=== PATIENT | female | born 1975 | race Caucasian/White ===

== ENCOUNTER 2019-01-23 06:16 | Day surgery (SDC) | payer OTHER ==
[2019-01-22 14:42] VITALS: BMI 22.6
--- NOTE | 2019-01-23 07:16 | HP ---
History & Physical Update - History History: No Change - Physical Physical: No Change - Assessment Assessment: No Change - Plan Plan: No Change (H&P reviewed, and unchanged from 01/22/19 Consent signed and witnessed)
--- NOTE | 2019-01-23 07:17 | OP ---
Operative Note - Note: Operative Date: 01/23/19 Pre-Operative Diagnosis: 43yo P2 with abnormal uterine bleeding, uterine polyps; . ROSCOE 2 on Colposcopic biopsy Operation: Hysteroscopy polypectomy. LEEP Findings: 1. Multiple Endometrial polyps - resected 2. Wide LEEP performed with 1x1 cm loop Surgeon: Brenda Richards Anesthesiologist/OLD COIN DEALER: Gokul Wright Anesthesia: MAC Estimated Blood Loss (mls): 100 Instrument used (Debridements only): Symphion Hysteroscope used Drains & Tubes with Location: FD 400cc Drains, Volume Out (mls): 20 Fluid Volume Replaced (mls): 300 Operative Report Dictated: Yes
[2019-01-23] MEDS ORDERED: oxyCODONE HCL 5 MG TABLET PO PRN (07:18)
[2019-01-23] MEDS ORDERED: IBUPROFEN 600 MG TABLET (FP) PO PRN (07:18)
[2019-01-23] MEDS ORDERED: ONDANSETRON 4 MG/2 ML VIAL IVPUSH PRN (07:18)
[2019-01-23] MEDS ORDERED: IBUPROFEN 800 MG/8 ML IJ IVPB PRN (07:18)
[2019-01-23] MEDS ORDERED: ELECTROLYTE-148 SOLN 1,000 ML IV SCH (07:30)
[2019-01-23] MEDS ORDERED: MIDAZOLAM HCL 2 MG/2 ML SINGLE DOSE VIAL ONE (07:31)
[2019-01-23] MEDS ORDERED: PROPOFOL 20 ML ONE (07:31)
[2019-01-23] MEDS ORDERED: SUCCINYLCHOLINE CHLORIDE 200 MG/10 ML SYRINGE ONE (07:32)
[2019-01-23] MEDS ORDERED: LIDOCAINE HCL/PF 2% SDV 5ML VIAL ONE (07:32)
[2019-01-23] MEDS ORDERED: DEXAMETHASONE SOD PHOSPHATE 4 MG/1 ML VIAL ONE (07:54)
[2019-01-23] MEDS ORDERED: KETOROLAC TROMETHAMINE 30 MG/1 ML VIAL ONE (07:54)
[2019-01-23 10:59] VITALS: BP 118/58; PULSE 60; TEMP 98.1
--- NOTE | 2019-01-23 12:10 | OP ---
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 OPERATION: Hysteroscopy, polypectomy, loop electrosurgical excision procedure. FINDINGS: 1. Multiple endometrial polyps resected. 2. Wide LEEP performed with 1 x 1-cm loop. ANESTHESIOLOGIST: Gokul Wright MD SURGEON: Lizeth Grimes MD ANESTHESIA: MAC. DESCRIPTION OF THE OPERATIVE PROCEDURE: After ensuring an informed consent, patient was brought to the operating room where she was placed in dorsal lithotomy position. Perineum and vagina were prepped and draped in sterile fashion. Cervix was visualized by placing Holliday retractors into the vagina. Cervix anterior lip was grasped with single-tooth tenaculum. Cervix was gradually dilated with Nascimento dilators to accommodate 6.3-mm Symphion hysteroscope, which was introduced into the uterine cavity without any difficulty. Above findings were visualized. The resectoscope portion of the Symphion was introduced through the operative channel, and multiple polyps as well as endometrium were resected, and subsequently multiple polyps and endometrial curettings were collected for pathology. That portion of procedure was completed and subsequently the coated speculum was introduced into the vagina. The cervix was re-grasped with single-tooth tenaculum and coated with Lugol solution. The transformation zone was visualized, and 1 x 1 loop electrocautery was utilized to resect the posterior lip of the cervix, anterior lip of the cervix, top hat, and subsequently the LEEP crater was cauterized with ball cautery. Excellent hemostasis was achieved. All instruments were removed from the cervix and vagina. The endocervical curettings were also performed and sent to Pathology. The instrument, sponge count was correct x2. Estimated blood loss 100 mL. Fluid deficit 400 mL. Patient received 300 mL of IV fluids and put out 20 mL of urine and was brought to the recovery room in stable condition, extubated. LIZETH GRIMES M.D. [id number]
--- NOTE | 2019-01-25 17:09 | PATH ---
Surgical Pathology Report Patient Name: SALAZAR CASILLAS [facility]. Rec. #: [id number] /Age/Gender: 1975 (Age: 43) / F Account: [id number] Location: [facility] SURGICAL Taken: 01/23/2019 Received: 01/23/2019 Reported: 01/25/2019 Physicians: Brenda Richards M.D. Specimen(s) Received A: POSTERIOR LIP AND INNER POSTERIOR LIP B: ENDOMTRIAL POLYP AND CURETTINGS C: ANTERIOR LIP D: TOP HAT RESECTION E: ENDOCERVICAL CURETTINGS Clinical History Postcoital and contact bleeding Final Diagnosis A. POSTERIOR LIP AND INNER POSTERIOR LIP, LEEP BIOPSY: CERVICAL TISSUE WITH ROSCOE 1 (CERVICAL INTRAEPITHELIAL NEOPLASIA GRADE 1). EPITHELIAL EROSION, ACUTE AND CHRONIC INFLAMMATION, RECENT AND OLD HEMORRHAGE, AND SQUAMOUS METAPLASIA ARE ALSO PRESENT. B. ENDOMETRIAL POLYP AND CURETTINGS: ENDOMETRIAL POLYP. SEPARATE SMOOTH MUSCLE BUNDLES, SUGGESTIVE OF SUBMUCOSAL LEIOMYOMA IN THE PROPER CLINICAL SETTING. SEPARATE SECRETORY TYPE ENDOMETRIUM. C. ANTERIOR LIP, LEEP BIOPSY: ROSCOE 2 (CERVICAL INTRAEPITHELIAL NEOPLASIA GRADE 2). SEE COMMENT. ROSCOE 1 IS ALSO PRESENT. COMMENT: ROSCOE 2 PRESENT IN DETACHED SQUAMOUS EPITHELIUM. THE SURGICAL MARGIN CANNOT BE PRECISELY ASSESSED. D. TOP HAT RESECTION: ROSCOE 2 (CERVICAL INTRAEPITHELIAL NEOPLASIA GRADE 2). SEE COMMENT. COMMENT: ROSCOE 2 PRESENT IN ENDOCERVICAL TISSUE AND MINUTE DETACHED SQUAMOUS EPITHELIUM. THE SURGICAL MARGIN CANNOT BE PRECISELY ASSESSED. E. ENDOCERVICAL CURETTINGS: ENDOCERVICAL TISSUE WITH NO SIGNIFICANT PATHOLOGIC CHANGE. SEPARATE FRAGMENTS OF SECRETORY TYPE ENDOMETRIUM AND ENDOMETRIAL POLYP. Electronically Signed Wilfrid Louie M.D. Gross Description A. Received in formalin labeled "posterior lip and inner posterior lip," are 2 fontenot, irregular, unoriented portions of tissue measuring 1.5 x 0.6 x 0.2 cm and 2.2 x 0.8 x 0.3 cm. The specimens are partially surfaced by a fontenot-pink mucosa. The specimens are inked green, serially sectioned and entirely submitted in 2 cassettes as follows: 1-smaller portion of tissue; 2-larger portion of tissue. B. Received in formalin labeled "endometrial polyp and curettings," is a 4.0 x 2.2 x 0.3 cm aggregate of fontenot pink soft tissue fragments. The formalin is filtered and the specimen is entirely submitted in 2 cassettes. C. Received in formalin labeled "anterior lip," is a 1.8 x 0.5 x 0.3 cm fontenot, irregular, unoriented portion of tissue. The specimen is inked green, serially sectioned and entirely submitted in one cassette. D. Received in formalin labeled "top hat resection," are 4 fontenot, irregular, unoriented portions of tissue ranging from 0.8 x 0.4 x 0.2 cm to 1.3 x 0.5 x 0.2 cm. The specimens are inked green, serially sectioned and entirely submitted in 4 cassettes. E. Received in formalin labeled "endocervical curettings," is a 1.3 x 0.9 x 0.3 cm aggregate of fontenot-brown soft tissue fragments. The formalin is filtered and the specimen is entirely submitted in one cassette. 01/23/201901/23/2019
== END 2019-01-23 11:51 | disposition home or self-care (01) ==
LOC: JASU-SURG 06:16
PROVIDERS: ATTEND Obstetrics & Gynecology
PROC: 0UJD8ZZ Inspection of Uterus and Cervix, Via Natural or Artificial Opening Endoscopic (ICD-10-PCS; 2019-01-23)
PROC: 0UBC7ZX Excision of Cervix, Via Natural or Artificial Opening, Diagnostic (ICD-10-PCS; principal; 2019-01-23 07:30)
PROC: 0UB97ZX Excision of Uterus, Via Natural or Artificial Opening, Diagnostic (ICD-10-PCS; 2019-01-23 07:30)
PROC: 0UDB7ZX Extraction of Endometrium, Via Natural or Artificial Opening, Diagnostic (ICD-10-PCS; 2019-01-23 07:30)
DX: N87.1 Moderate cervical dysplasia (principal); N84.0 Polyp of corpus uteri; N93.9 Abnormal uterine and vaginal bleeding, unspecified
CPT/HCPCS: 81025; 94760